=== PATIENT | female | born 1955 | race African-American/Black ===

== ENCOUNTER 2022-05-19 22:34 | Inpatient (IN) | payer OTHER, MEDICAID ==
[~2022-05-19] VITALS: Ht 165.1 cm; Wt 72.6 kg
[2022-05-19] MEDS ORDERED: ONDANSETRON HCL 4MG/2ML INJ IV STA (23:07)
[2022-05-19] MEDS ORDERED: SODIUM CHLORIDE 0.9% 1000ML BAG (SEPSIS BOLUS) IV ONE (23:15)
[2022-05-19 23:52] LABS: BASOPHILS % 0.4 % (0.0-2.0); EOSINOPHILS % 0.3 % (0.0-5.0); HEMATOCRIT. 34.2 % (36.0-48.0); HEMOGLOBIN. 11.5 g/dL (12.0-16.0); LYMPHOCYTES % 19.7 % (20.0-50.0); MEAN CORPUSCULAR HEMOGLOBIN 30.5 pg (28.0-32.0); MEAN CORPUSCULAR VOLUME 90.6 fL (81.0-99.0); MEAN PLATELET VOLUME 10.4 fl (7.4-10.4); NEUTROPHILS % 74.6 % (40.0-76.0); PLATELET 416 x1000/uL (130-400); RED BLOOD CELL COUNT 3.78 mill/uL (4.2-5.4); RED CELL DISTRIBUTION WIDTH 16.2 % (11.6-14.6)
[2022-05-20 00:07] LABS: CHLORIDE 101 mEq/L (98-107)
[2022-05-20] MEDS ORDERED: PIPERACILLIN/TAZ 3.375G PREMIX 50 ML IV NR (03:15)
[2022-05-20] MEDS ORDERED: VANCOMYCIN 1G PREMIX 200 ML IV ONE (03:15)
[2022-05-20] MEDS ORDERED: VANCOMYCIN 1,000 MG in DEXT 5% WATER 250 ML IV NR (03:30)
[2022-05-20] MEDS ORDERED: ACETAMINOPHEN 325MG TABLET PO PRN ×4 (09:00→09:15)
[2022-05-20] MEDS ORDERED: ENOXAPARIN 40MG/0.4ML SYR SUBCUT SCH (09:00)
[2022-05-20] MEDS ORDERED: HYDROCODONE/ACETAMINOPHEN 7.5/325MG TABLET PO PRN (09:15)
[2022-05-20] MEDS: PANTOPRAZOLE SODIUM 40 MG/VIAL IV SCH (09:25)
[2022-05-20] MEDS ORDERED: NALOXONE HCL 0.4MG/ML VIAL IV PRN (09:30)
[2022-05-20 09:54] LABS: BG BASE EXCESS -11.4 mmol/L (-2.0-2.0); BG CARBOXYHEMOGLOBIN 0.2 % (0.5-1.5); BG DEOXYHEMOGLOBIN 3.6 % (0.0-5.0); BG HCO3 ACT 13.4 mmol/L (22.0-26.0); BG OXYGEN SATURATION 96.4 % (92.0-98.5); BG OXYHEMOGLOBIN 95.2 % (94.0-97.0); BG PH 7.314 (7.350-7.450); BG SAMPLE SITE RIGHT BRACHIAL; BG TOTAL HEMOGLOBIN 10.4 g/dL (12.0-18.0); BG VENT MODE ROOM AIR
[2022-05-20] MEDS ORDERED: HEPARIN 5000 UNITS/ML VIAL SUBCUT SCH (10:00)
[2022-05-20 10:42] LABS: CHLORIDE 105 mEq/L (98-107)
[2022-05-20] MEDS ORDERED: ASPIRIN 325MG EC TABLET PO SCH (10:45)
[2022-05-20] MEDS ORDERED: PIPERACILLIN/TAZOBACTAM 3.375GM/50ML PREMIX IV NR (11:00)
[2022-05-20 11:12] LABS: CREATINE KINASE MB FRACTION 187.7 ng/mL (0.5-3.6)
[2022-05-20] MEDS ORDERED: SODIUM BICARBONATE 8.4% 1 MEQ/ML 50ML SYR IV ONE (11:15)
[2022-05-20 13:42] LABS: CREATINE KINASE 1356 IU/L (26-192)
[2022-05-20 14:28] LABS: PARTIAL THROMBOPLASTIN TIME 35.6 sec (23.4-31.0); PROTHROMBIN TIME 50.3 sec (9.6-11.0)
[2022-05-20 14:36] LABS: INR 5.4
[2022-05-20 15:00] VITALS: BP 123/62
[2022-05-20 15:03] LABS: HEPATITIS B SURFACE ANTIGEN NEGATIVE
[2022-05-20 16:00] VITALS: BP 110/65
[2022-05-20] MEDS: SODIUM BICARBONATE 150 MEQ in DEXTROSE 5% WATER 1,000 ML IV SCH (16:00)
[2022-05-20] MEDS: MORPHINE SULFATE 2 MG/ML CPJ (NOT FOR IM USE) IV PRN (17:22)
[2022-05-20 18:00] VITALS: BP 98/60
[2022-05-20 20:00] VITALS: BP 104/61
[2022-05-20] MEDS: PIPERACILLIN/TAZOBACTAM 3.375 G in DEXTROSE 5% WATER 50 ML IV SCH (20:54)
[2022-05-20 22:00] VITALS: BP 109/54
[2022-05-20] MEDS ORDERED: PIPERACILLIN/TAZOBACTAM 3.375 G in DEXTROSE 5% WATER 50 ML IV SCH (22:00)
[2022-05-21] VITALS (14 sets, daily range): BP systolic 99–138; BP diastolic 54–85
[2022-05-21 05:15] LABS: CHLORIDE 104 mEq/L (98-107)
[2022-05-21 05:38] LABS: PHOSPHORUS 4.6 mg/dL (2.5-4.9)
[2022-05-21 05:45] LABS: HEMOGLOBIN. 9.2 g/dL (12.0-16.0); MEAN CORPUSCULAR HEMOGLOBIN 30.5 pg (28.0-32.0); MEAN CORPUSCULAR VOLUME 89.2 fL (81.0-99.0); MEAN PLATELET VOLUME 10.6 fl (7.4-10.4); PLATELET 362 x1000/uL (130-400); RED BLOOD CELL COUNT 3.03 mill/uL (4.2-5.4); RED CELL DISTRIBUTION WIDTH 15.8 % (11.6-14.6)
[2022-05-21] MEDS ORDERED: LISINOPRIL 40MG TABLET PO SCH (09:00)
[2022-05-21] MEDS ORDERED: CARVEDILOL 6.25 MG TABLET PO SCH (09:00)
[2022-05-21] MEDS ORDERED: AMLODIPINE 10MG TABLET PO SCH (13:00)
[2022-05-21] MEDS: PANTOPRAZOLE SODIUM 40 MG/VIAL IV SCH (13:15)
[2022-05-21] MEDS: PIPERACILLIN/TAZOBACTAM 3.375 G in DEXTROSE 5% WATER 50 ML IV SCH ×2 (13:15→22:48)
[2022-05-21] MEDS: SODIUM BICARBONATE 150 MEQ in DEXTROSE 5% WATER 1,000 ML IV SCH (13:16)
[2022-05-21 14:08] LABS: PLATELET ESTIMATE NORMAL
[2022-05-21] MEDS ORDERED: ASPI-986 MT (14:30)
[2022-05-21] MEDS: PHYTONADIONE 10MG/ML AMP SUBCUT SCH (17:40)
[2022-05-21] MEDS: HYDROCODONE/ACETAMINOPHEN 5/325MG TABLET PO PRN (17:41)
[2022-05-22] VITALS (18 sets, daily range): BP systolic 98–119; BP diastolic 52–84
[2022-05-22] MEDS: PHYTONADIONE 10MG/ML AMP SUBCUT SCH ×3 (00:10→13:29)
[2022-05-22] MEDS: SODIUM BICARBONATE 150 MEQ in DEXTROSE 5% WATER 1,000 ML IV SCH ×2 (01:46→11:37)
[2022-05-22] MEDS: HYDROCODONE/ACETAMINOPHEN 5/325MG TABLET PO PRN ×2 (03:25→21:52)
[2022-05-22 06:45] LABS: HEMATOCRIT. 26.3 % (36.0-48.0); HEMOGLOBIN. 8.9 g/dL (12.0-16.0); MEAN CORPUSCULAR HEMOGLOBIN 30.1 pg (28.0-32.0); MEAN CORPUSCULAR VOLUME 88.5 fL (81.0-99.0); MEAN PLATELET VOLUME 10.7 fl (7.4-10.4); PLATELET 310 x1000/uL (130-400); RED BLOOD CELL COUNT 2.98 mill/uL (4.2-5.4); RED CELL DISTRIBUTION WIDTH 15.7 % (11.6-14.6)
[2022-05-22 08:44] LABS: INR 1.4; PROTHROMBIN TIME 14.8 sec (9.6-11.0)
[2022-05-22] MEDS: PIPERACILLIN/TAZOBACTAM 3.375 G in DEXTROSE 5% WATER 50 ML IV SCH ×2 (09:17→21:42)
[2022-05-22] MEDS: PANTOPRAZOLE SODIUM 40 MG/VIAL IV SCH (09:17)
[2022-05-22] MEDS: MORPHINE SULFATE 2 MG/ML CPJ (NOT FOR IM USE) IV PRN (10:13)
[2022-05-22 11:09] LABS: CHLORIDE 96 mEq/L (98-107)
[2022-05-22 11:34] LABS: PHOSPHORUS 5.9 mg/dL (2.5-4.9)
[2022-05-22 14:40] LABS: NUCLEATED RED BLOOD CELLS 1 /100 WBC
[2022-05-22 14:41] LABS: PLATELET ESTIMATE NORMAL
[2022-05-22] MEDS ORDERED: SODIUM CHLORIDE 0.9% 1,000 ML IV SCH (15:15)
[2022-05-22 17:32] LABS: INR 1.3; PROTHROMBIN TIME 13.3 sec (9.6-11.0)
[2022-05-22] MEDS ORDERED: VANCOMYCIN 500MG PREMIX 100 ML IV NR (18:00)
[2022-05-23] VITALS: BP 144/77
[2022-05-23] MEDS ORDERED: ONDANSETRON HCL 4MG/2ML INJ IV PRN (00:45)
== END 2022-05-23 07:12 | disposition short-term general hospital (02) | DRG 871 ==
LOC: ER 22:34 → 5EST 05-20 04:26 → EDBEDREQ 05-20 04:35 → EDBEDREQSVC 05-20 10:51 → ENRESERV 05-20 12:52
PROVIDERS: ADMIT Internal Medicine; ATTEND Internal Medicine
PROC: 30233K1 Transfusion of Nonautologous Frozen Plasma into Peripheral Vein, Percutaneous Approach (ICD-10-PCS; principal; 2022-05-21)
DX: A41.9 Sepsis, unspecified organism (principal); E43 Unspecified severe protein-calorie malnutrition; K85.90 Acute pancreatitis without necrosis or infection, unspecified; N17.0 Acute kidney failure with tubular necrosis; K83.1 Obstruction of bile duct; K56.2 Volvulus; C78.7 Secondary malignant neoplasm of liver and intrahepatic bile duct; D68.9 Coagulation defect, unspecified; E87.20 Acidosis, unspecified; K83.09 Other cholangitis; J98.11 Atelectasis; C25.0 Malignant neoplasm of head of pancreas; R65.20 Severe sepsis without septic shock; M54.50 Low back pain, unspecified; I10 Essential (primary) hypertension; I25.10 Atherosclerotic heart disease of native coronary artery without angina pectoris; K82.8 Other specified diseases of gallbladder; E87.5 Hyperkalemia; E78.5 Hyperlipidemia, unspecified; D64.9 Anemia, unspecified; D25.9 Leiomyoma of uterus, unspecified; Z20.822 Contact with and (suspected) exposure to COVID-19; R91.1 Solitary pulmonary nodule; Z95.5 Presence of coronary angioplasty implant and graft; Z86.73 Personal history of transient ischemic attack (TIA), and cerebral infarction without residual deficits; I25.2 Old myocardial infarction; Z82.49 Family history of ischemic heart disease and other diseases of the circulatory system; Z83.438 Family history of other disorder of lipoprotein metabolism and other lipidemia; Z68.26 Body mass index [BMI] 26.0-26.9, adult; Z79.82 Long term (current) use of aspirin
CPT/HCPCS: 36415; 36600; 71045; 71250; 74176; 74181; 80053; 80061; 80076; 80202; 82105; 82375; 82550; 82553; 82805; 83605; 83735; 84100; 84145; 84484; 85025; 85384; 86301; 86705; 86709; 86803; 86850; 86900; 86927; 87340; 87426; 93005; 99291; C9113; J1644; J2270; J2405; J2543; J3370; J3430; J3490; J7030; J7060; J7070; P9017